=== PATIENT | female | born 1970 | race Caucasian/White ===

== ENCOUNTER → 2018-04-16 17:38 | Outpatient (CLI) | payer BC, SELFPAY ==
--- NOTE | 2018-04-16 17:49 | RAD_ITS ---
STUDY: X-RAY - LUMBAR SPINE REASON FOR EXAM: Female, 47 years old. Back pain TECHNIQUE: 3 view(s) of the lumbar spine were obtained. COMPARISON: None FINDINGS: There de hernandez at L4 and L5. A mild lumbar scoliosis with convexity to the left. 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 The procedure is secured by plates and transpedicular screws through L3, L4 and L5. There is deroofing L4 and L5 Electronically Signed: Tan Vogt, at 7:40 EDT Tel , Service support , RAD/Lumbar Spine 2 or 3 Views
== END ==
PROVIDERS: Family Provider Internal Medicine; PCP Internal Medicine; Visit Provider Clinical Nurse Specialist
DX: Z98.890 Other specified postprocedural states (principal)
CPT/HCPCS: 72100

== ENCOUNTER 2018-05-18 16:01 | Emergency (ER) | payer BC, SELFPAY ==
[2018-05-18 16:02] VITALS: BP 120/72; PULSE 70; RESP 16; TEMP 36.6; O2SAT 99; BMI 28.4
--- NOTE | 2018-05-18 16:24 | ED.DCSUM_ITS ---
- ER Visit Summary Date of Service: 05/18/18 Chief Complaint: Pain History of Present Illness: The patient is a 47 F who presents with essentially whole body pain she complains of pain from the top of her head to the tips of her toes only on the left side. She states that she does have back pain all the way across her lower back. She had a lumbar spinal fusion of L3 through L5 in February. She had been on oxycodone since that time. She was taken off of this a little over a week ago. A couple of days later she began to have increased pain along the entire left side of her body. She saw her neurologist who adjusted her migraine medications. She has an appointment with her spinal surgeon tomorrow. She was also prescribed Percocet. She states she was anxious today about her pain so presented here. No slurred speech speech difficulty paresthesias weakness. No recent illness. No fevers vomiting or diarrhea. No difficulty breathing. No abdominal pain. Physical Examination: Afebrile vitals are normal Moist mucous membranes Heart regular rate and rhythm Lungs are clear Abdomen soft and nontender Alert and oriented with no focal or lateralizing neurological deficits cranial nerves are intact she has normal strength and sensation she has normal cerebellar testing, no ataxia Test Results: Not indicated Emergency Department Course and Treatment: I explained the patient that I am uncertain of the etiology of her pain. However she has normal vital signs and a benign exam and should. She has already seen neurology for the symptoms. She is also scheduled to see her spinal surgeon for follow-up tomorrow. I do not believe any emergent testing is indicated at this time. She was instructed on signs and symptoms to monitor for. She was given intramuscular Toradol for her pain. Patient comfortable with the plan to follow-up as scheduled. She was discharged. Treatment Plan: [] Disposition: Discharge Impression: Pain This note was generated with [employer] dictation software. It may contain incorrect words, spelling, and punctuation that were not noted in review of the chart prior to signing ED Disposition - Plan for ED Patient: Chief Complaint: Headache Referrals: Hope Mcdaniel MD [Primary Care Provider] -
--- NOTE | 2018-05-18 16:24 | ED.DEP ---
ED Disposition - Plan for ED Patient: Chief Complaint: Headache Instructions: ED Acute Pain [facility] Referrals: Hope Mcdaniel MD [Primary Care Provider] -
[2018-05-18] MEDS: Ketorolac 60 MG/2 ML Vial IM (16:34)
[2018-05-18 17:11] VITALS: PULSE 67; RESP 16; O2SAT 98
== END 2018-05-18 17:12 | disposition home or self-care (01) ==
LOC: ED 16:31
PROVIDERS: Emergency Provider Emergency Medicine; Family Provider Internal Medicine; PCP Internal Medicine
DX: M54.5 Low back pain (principal); R52 Pain, unspecified; G43.909 Migraine, unspecified, not intractable, without status migrainosus; F32.9 Major depressive disorder, single episode, unspecified; I48.91 Unspecified atrial fibrillation; Z98.1 Arthrodesis status; Z79.891 Long term (current) use of opiate analgesic; Z79.899 Other long term (current) drug therapy
CPT/HCPCS: 96372; 99283

== ENCOUNTER 2018-07-25 16:32 | Emergency (ER) | payer BC, SELFPAY ==
[2018-07-25 16:33] VITALS: BP 127/82; PULSE 68; RESP 16; TEMP 36.4; O2SAT 98; BMI 26.8
--- NOTE | 2018-07-25 16:57 | ED.DCSUM_ITS ---
- ER Visit Summary Date of Service: 07/25/18 Chief Complaint: Left great toe injury and laceration History of Present Illness: The patient is a 47 F no significant past medical history. Patient was using a grinding wheel at home. We will came off and struck her on her left great toe. Causing a laceration. She also states that it is painful and swollen. No prior history or surgery to her left foot. No other injuries. Does not believe her tetanus is up-to-date. Physical Examination: Middle-aged female. No acute distress. Vital signs are stable afebrile. H EENT exam unremarkable. Lungs clear to auscultation. Heart regular rhythm no murmur. Abdomen soft nontender. She is moving all 4 extremities. They are neurovascularly intact. Her left foot has a normal DP pulse. Ankle is nontender nonswollen. The foot is nontender nonswollen except the left great toe near the interphalangeal joint there is a laceration approximately 2 cm in length. There is a small amount of blood. Mild swelling and tenderness. No gross bony deformity. Distally she has normal cap refill and touch sensation. She can flex and extend her great toe. Neurologic exam normal. Test Results: Three-view x-ray left foot shows no acute abnormality. No fracture. Emergency Department Course and Treatment: Patient's tetanus will be updated. Procedure note: Left great toe laceration repair. 2 cm laceration. Locally anesthetized with lidocaine. Washed with saline. Explored. Closed using # 2 4-0 Ethilon simple interrupted suture. Proper hemostasis wound closure was obtained. Wound care instructions explained to the patient. Treatment Plan: Ice and elevate the left great toe. Wash daily. Apply antibiotic ointment. Suture removal in 10 days. Disposition: Discharge Impression: Acute left great toe laceration of 2 cm ER repair Left great toe contusion Tetanus updated This note was generated with [employer] dictation software. It may contain incorrect words, spelling, and punctuation that were not noted in review of the chart prior to signing ED Disposition - Plan for ED Patient: Disposition: Home or Assisted Living Chief Complaint: Lower Extremity Injury Instructions: ED Laceration Foot Referrals: Hope Mcdaniel MD [Primary Care Provider] - 10 Day for suture removal Additional Instructions: Ice and elevate left great toe. Clean daily and apply antibiotic ointment. Tylenol and Motrin for pain. Suture removal in 10 days. Watch for any signs of infection such as pus, red streaks, redness, fever or massive swelling. Is seen return to the ER.
[2018-07-25] MEDS: Diphth,Pertuss(Acell),Tet Vac 0.5 ML Vial IM (17:01)
--- NOTE | 2018-07-25 17:20 | RAD_ITS ---
STUDY: X-RAY - LEFT FOOT CLINICAL: Female, 47 years old. Left foot laceration of the proximal first toe TECHNIQUE: 3 view(s) of the foot. COMPARISON: None. FINDINGS: Normal talus, calcaneus, and tarsal bones. Normal visualized subtalar, talonavicular, calcaneocuboid, tarsal and tarsometatarsal articulations. Normal metatarsi. Normal metatarsophalangeal joint of the great toe. Normal tibial and fibular sesamoid bones. Normal interphalangeal joint of the great toe. Normal phalanges of the great toe. Normal second through fifth metatarsophalangeal joints. Normal interphalangeal joints and phalanges of the lesser toes. The soft tissue structures are unremarkable. RAD/Foot min 3 Views IMPRESSION: Normal x-ray examination of the foot. Electronically Signed: Neri Melendez DO at 17:41 EDT Tel , Service support ,
--- NOTE | 2018-07-25 17:50 | ED.DEP ---
ED Disposition - Plan for ED Patient: Disposition: Home or Assisted Living Chief Complaint: Lower Extremity Injury Instructions: ED Laceration Foot Referrals: Hope Mcdaniel MD [Primary Care Provider] - 10 Day for suture removal Additional Instructions: Ice and elevate left great toe. Clean daily and apply antibiotic ointment. Tylenol and Motrin for pain. Suture removal in 10 days. Watch for any signs of infection such as pus, red streaks, redness, fever or massive swelling. Is seen return to the ER.
[2018-07-25 18:02] VITALS: BP 124/76; PULSE 77; RESP 16; O2SAT 98
== END 2018-07-25 18:03 | disposition home or self-care (01) ==
PROVIDERS: Emergency Provider Emergency Medicine; Family Provider Internal Medicine; PCP Internal Medicine
DX: S91.112A Laceration without foreign body of left great toe without damage to nail, initial encounter (principal); W20.8XXA Other cause of strike by thrown, projected or falling object, initial encounter; S90.112A Contusion of left great toe without damage to nail, initial encounter
CPT/HCPCS: 12001; 73630; 90471; 90715; 99282

== ENCOUNTER 2019-08-11 18:30 | Outpatient (RCR) | payer BC, SELFPAY ==
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
== END 2019-08-11 19:00 | disposition home or self-care (01) ==
LOC: PT 18:30
PROVIDERS: Family Provider Internal Medicine; PCP Internal Medicine; Referring Provider Nurse Practitioner Family; Visit Provider Nurse Practitioner Family
DX: M51.37 Other intervertebral disc degeneration, lumbosacral region (principal); M54.17 Radiculopathy, lumbosacral region; M47.817 Spondylosis without myelopathy or radiculopathy, lumbosacral region; M96.1 Postlaminectomy syndrome, not elsewhere classified; M48.07 Spinal stenosis, lumbosacral region; M79.10 Myalgia, unspecified site
CPT/HCPCS: 97110; 97113; 97162; 97164; 97530

== ENCOUNTER 2020-01-12 16:51 | Observation (INO) | payer BC, SELFPAY ==
[2020-01-12 16:52] VITALS: BP 135/99; PULSE 66; RESP 15; TEMP 36.9; O2SAT 98; BMI 31.4
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
--- NOTE | 2020-01-12 17:08 | EKG12_ITS ---
Test Reason : SYNCOPE Blood Pressure : / mmHG Vent. Rate : 065 BPM Atrial Rate : 065 BPM P-R Int : 182 ms QRS Dur : 076 ms QT Int : 380 ms P-R-T Axes : 046 022 050 degrees QTc Int : 395 ms Normal sinus rhythm Nonspecific ST abnormality Abnormal ECG Confirmed by GREG AMOS, ALVIN ([id number]), news assignment editor TEODORA LUU ([id number]) on 01/18/2020 11:19:32 AM Referred By: Luis Antonio Matson Confirmed By:DAVIDA GARZA MD
--- NOTE | 2020-01-12 17:15 | RAD_ITS ---
STUDY: X-RAY CHEST REASON FOR EXAM: Female, 49 years old. [place]NCOPE, RECENT TRAVEL [place] TECHNIQUE: Single frontal view of the chest. COMPARISON: 03/05/2017 FINDINGS: The lungs are clear and expanded. There is no demonstrated pleural abnormality. Normal size heart. Normal mediastinum and orion. Normal visualized pulmonary arteries. Normal visualized aortic arch and descending thoracic aorta. Normal visualized thoracic spine. Normal visualized ribs, clavicles, and shoulders. There is no demonstrated abnormality of the visualized soft tissue structures of the upper abdomen. RAD/Chest 1 View (Portable) IMPRESSION: Normal x-ray examination of the chest. Electronically Signed: Tarun Thurman MD at 17:34 EDT Tel , Service support ,
[2020-01-12 17:17] VITALS: BP 130/83; PULSE 66; RESP 18; O2SAT 96
[2020-01-12 17:29] LABS: Absolute Lymphocyte Count 3.82 X10^3/uL (0.83-4.51); Basophil# 0.05 X10^3/uL; Basophil% 0.5 % (0-1); Eosinophil# 0.06 X10^3/uL; Eosinophils% 0.6 % (0-5); Hematocrit 47.9 % (37-47); Hemoglobin 15.6 g/dL (12.0-15.0); Lymphocyte # 3.82 X10^3/ul (4.0); Lymphocyte % 38.7 % (19-41); Mean Corp Hgb Conc 32.6 g/dL (32-36); Mean Corpuscular Hgb 30.2 pg (27.0-32.0); Mean Corpuscular Volume 92.6 fL (81-99); Mean Platelet Vol. 9.7 fl (6.2-12.0); Monocyte# 0.96 X10^3/uL; Monocyte% 9.7 % (0-10); NRBC Flagged by Analyzer 0 % (0-5); Neutrophil # 4.95 X10^3/uL (2.7-7.7); Neutrophil % 50.3 % (47-70); Platelet Count 332 K/mm3 (150-450); RBC Distribution Width CV 14.4 % (11.6-14.6); RBC Distribution Width SD 49.1 fl (35.1-43.9); Red Blood Count 5.17 M/mm3 (4.2-5.4); White Blood Count 9.9 K/mm3 (4.4-11.0)
[2020-01-12 17:48] LABS: Prothrombin Time (Protime)PT. 13.1 SECONDS (11.7-14.9)
[2020-01-12 17:49] LABS: Partial Thromboplast Time 34.2 Seconds (24.1-36.2)
[2020-01-12 17:59] LABS: Anion Gap 7 (5-15); BUN 21 mg/dL (7-18); BUN/Creat Ratio 22.4 RATIO (10-20); Calcium,Total 9.9 mg/dL (8.5-10.1); Chloride 106 mmol/L (98-107); Creatinine, Serum 0.94 mg/dL (0.55-1.02); EST Glomerular Filtration Rate 67 mL/min (>60); Est Glom Filt Rate - Afr Amer 81 mL/min (>60); Estimated Creatinine Clearance 66.28 ml/min; Glucose 91 mg/dL (74-106); Potassium 4.2 mmol/L (3.5-5.1); Sodium Level 138 mmol/L (136-145)
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
--- NOTE | 2020-01-12 19:13 | PCM.HP.STD ---
Problem List (1) Stroke-like symptoms Status: Acute (2) Perimenopause Status: Chronic (3) Depression Status: Chronic (4) Cholelithiasis Status: Inactive History of Present Illness Date of Admission: 01/12/20 Chief Complaint: syncope The patient is a 49 year old F with a significant history of chronic back pain and chronic left lower extremity pain; depression and who traveled to [place] and [place] on December 30 2019 and returned on January 09 2020 presenting with syncopal episode. While, patient was driving she felt head pressure, and general body paresthesia. Also things looked brighter. Patient pulled to the side and while at the side she had a syncopal episode. Thereafter she had blurry vision; and generalized body weakness. Further she reports numbness of her lips and face. At the Emergency department she continued to have some general body tingling. CT head, CTA head and neck did not show any acute abnormality. Past Medical History Past Medical History (Chronic Problems): Chronic Problems Perimenopause (Chronic) Depression (Chronic) Allergies No Known Allergies Allergy (Verified 05/18/18 16:06) Home Medications: Ambulatory Orders Medication Instructions Recorded Citalopram [Celexa] 20 mg PO DAILY 05/18/18 Eletriptan Hydrobromide [Relpax] 20 mg PO DAILY 05/18/18 Meloxicam 15 mg PO DAILY 05/18/18 Methocarbamol 500 mg PO TID 05/18/18 Oxycodone HCl/Acetaminophen 5 - 325 mg PO Q6H PRN PRN 05/18/18 [Percocet 5-325] Topiramate [Topamax] 50 mg PO BID 05/18/18 Hydrocodone/Acetaminophen [[place] 1 ea PO PRN PRN #10 tab 07/25/18 7.5-325 Tablet] Surgical History: cholecystectomy, tonsillectomy, - - Spinal fusion Smoking Status: Never smoker Alcohol: Occasional - *Family History Maternal History Items: - - Patient was adopted and she does not know biological maternal and paternal medical history. Paternal History Items: - - Patient was adopted and she does not know biological maternal and paternal medical history. Review of Systems Constitutional: Reports: Weakness. Denies: Chills, Fever, Weight Change HEENT: Denies: Head Aches, Sinus Congestion, Sinus Drainage Cardiovascular: Reports: Syncope. Denies: Chest Pain, Palpitations Respiratory: Denies: Cough, Shortness of breath at rest, Sputum production Gastrointestinal: Denies: Abdominal Pain, Nausea, Vomiting Genitourinary: Denies: Dysuria Musculoskeletal: Denies: Joint Pain, Joint Tenderness Skin: Denies: Rash, Wounds Neurological: Reports: Numbness, Tingling. Denies: Focal weakness Psychiatric: Denies: Anxiety, Depression, Homicidal Ideations, Suicidal Ideations Hematologic/ Lymphatic: Denies: Easy Bruising, Easy Bleeding VTE Information - Inpt Only VTE Present on Admission: No VTE Mechan Device Prophylaxis: None VTE Pharm Prophylaxis ordered?: Yes Patient Problems: Active and Suspected Problems Stroke-like symptoms (Acute) - Physical Exam Vitals/I&O's: Vital Signs Temp Pulse Resp BP Pulse Ox 98.5 F 66 18 130/83 H 96 01/12/20 16:52 01/12/20 17:17 01/12/20 17:17 01/12/20 17:17 01/12/20 17:17 Oxygen Delivery Method Room Air Weight: 88.2 kg Body Mass Index (BMI) 31.4 General: Alert, Oriented x3, Cooperative HEENT: Atraumatic, PERRLA, EOMI, Normocephalic Neck: Supple, No JVD, Negative Carotid Bruits Lungs: Clear to auscultation, Normal air movement Cardiovascular: Regular rate, No murmurs Abdomen: Bowel Sounds Present, Soft, Non Tender Extremities: No edema, Capillary Refill Less than 3 Seconds Skin: No rashes, No breakdown Musculoskeletal: No Tenderness to Palpation of Joints or Extremities Neurological: Cranial nerves II-XII grossly intact, Deep Tendon Reflexes 2+/4 and Symmetrical, - - Sensation in right upper and right lower extremities appear more pronounced than that of the left upper and left lower extremity. Strength in right upper and right lower extremity 5 out of 5. Strength in left upper and left lower extremity was 3 out of 5. No dysmetria. However [id number] testing and heel to taylor test was a slow in left compared to right Psych/Mental Status: Normal Affect, Appropriate Laboratory Results 01/12/20 16:40: WBC 9.9, RBC 5.17, Hgb 15.6 H, Hct 47.9 H, MCV 92.6, MCH 30.2, MCHC 32.6, RDW Std Deviation 49.1 H, RDW Coeff of Aaron 14.4, Plt Count 332, MPV 9.7, Immature Gran % (Auto) 0.200, Neut % (Auto) 50.3, Lymph % (Auto) 38.7, Person % (Auto) 9.7, Eos % (Auto) 0.6, Baso % (Auto) 0.5, Absolute Neuts (auto) 5.0, Absolute Lymphs (auto) 3.82, Nucleated RBC % 0 01/12/20 16:40: PT 13.1, INR 1.0, APTT 34.2 01/12/20 16:40: Sodium 138, Potassium 4.2, Chloride 106, Carbon Dioxide 25.0, Anion Gap 7, BUN 21 H, Creatinine 0.94, Estim Creat Clear Calc 66.28, Est GFR (MDRD) Af Amer 81, Est GFR (MDRD) Non-Af 67, BUN/Creatinine Ratio 22.4 H, Glucose 91, Calcium 9.9, Troponin I < 0.015 Assessment/Plan All Active Problems Stroke-like symptoms (Acute) Paroxysmal atrial fibrillation (Resolved) The patient is a 49 year old F with a significant history of chronic back pain and chronic left lower extremity pain; depression and who traveled to [facility] on December 30 2019 and returned on January 09 2020 presenting with syncopal episode and found to have left upper extremity and left lower extremity weakness consistent with strokelike symptoms. Strokelike symptoms NINDS NIH Scale CT of the head was unremarkable. CTA head and neck unremarkable. -Check Hba1c, Lipid level Physical therapy; and occupational therapy to work with patient. N.p.o. until bedside swallow eval. Daily aspirin. High intensity statin Permissive hypertension. Control blood pressure with labetalol for systolic blood pressure of more than 220 or diastolic blood pressure of more than 120. -Permissive HTN for 24 hrs. MRI of brain; and neck. Check vitamin B-12 for paresthesias. Echocardiogram ordered. Syncope Get orthostatic vitals. Echo as above. EKG did not show any ST or T wave abnormality. Chronic pain Continue home pain regimen Depression Continue home antidepressants. DVT Prophylaxis Subcutaneous Lovenox Covid 19 Quarantine: Patient return from [facility] and [facility] 3 days ago; and is expected to self quarantine. Patient has no fever or respiratory symptoms. Placed on droplet and contact precautions. OBSV E&M: 39233 Initial observation care L3
[2020-01-12 20:10] VITALS: BMI 29.2
[2020-01-12 20:20] VITALS: BP 128/75; PULSE 62; RESP 16; TEMP 36.7; O2SAT 98
[2020-01-12 20:45] VITALS: O2SAT 97
[2020-01-12 20:57] VITALS: PULSE 67
[2020-01-12] MEDS: Topiramate 25 MG Tablet PO (22:24)
[2020-01-12] MEDS: Atorvastatin Calcium 80 MG Tablet PO (22:24)
[2020-01-12] MEDS: oxyCODONE 5 MG Tablet PO (22:25)
[2020-01-13] VITALS (12 sets, daily range): BP systolic 102–134; BP diastolic 54–80; PULSE 56–70; RESP 16–20; TEMP 36.3–36.6; O2SAT 95–99
[2020-01-13] MEDS: oxyCODONE 5 MG Tablet PO ×3 (04:45→17:55)
[2020-01-13] MEDS: Rizatriptan Benzoate 10 MG Tablet PO ×2 (05:04→18:57)
[2020-01-13 06:36] LABS: Cholesterol 304 mg/dL (200); High Density Lipoprotein 61 mg/dL; Triglycerides 115 mg/dL; Very Low Density Lipoprotein 23 mg/dL (5-40)
[2020-01-13 07:40] LABS: Hemoglobin A1c 5.7 % (4.2-6.3)
[2020-01-13 08:19] LABS: Vitamin B12 746 pg/mL (211-911)
--- NOTE | 2020-01-13 09:00 | MRI_ITS ---
STUDY: MRI BRAIN WITHOUT CONTRAST REASON FOR EXAM: Female, 49 years old. cva, left sided weakness TECHNIQUE: Standardized multiplanar fat and water weighted pulse sequences were obtained. COMPARISON: 01/12/2020 FINDINGS: Normal size of the ventricles and extra-axial spaces for the patient''s age. Normal white matter tracts of the supratentorial brain. Normal bilateral basal ganglia. Normal thalami. There is no extra-axial fluid accumulation. Normal flow voids within the major intracranial circulation suggesting patency by spin echo criteria. Normal sella turcica, pituitary gland, infundibular stalk, optic chiasm and hypothalamus. Normal tectal plate and pineal gland. Normal midbrain, bharti and medulla. Normal cerebellum. Normal basal cisterns. Normal bilateral temporal bones. MRI/Brain without Contrast IMPRESSION: Normal unenhanced MRI of the brain. Electronically Signed: Pao Mejia MD at 12:56 EDT Tel , Service support ,
[2020-01-13] MEDS: Enoxaparin 40 MG/0.4 ML Syringe SC (09:50)
[2020-01-13] MEDS: Acetaminophen 325 MG Tablet 650 MG PO ×2 (09:51→17:55)
[2020-01-13] MEDS: Aspirin 81 MG TAB.CHEW PO (09:51)
--- NOTE | 2020-01-13 13:58 | PN_ITS ---
Patient Problems: Active and Suspected Problems Stroke-like symptoms (Acute) Subjective: States that she is feeling a little bit better than when she came in however she still having significant left-sided weakness Vitals/I&O's: Vital Signs Temp Pulse Resp BP Pulse Ox 97.6 F L 57 L 20 H 134/75 H 99 01/13/20 08:20 01/13/20 08:20 01/13/20 08:20 01/13/20 08:20 01/13/20 08:20 Oxygen Delivery Method Room Air Weight: 181 lb 3.52 oz Body Mass Index (BMI) 29.2 Orthostatic Vital Signs Start: 01/13/20 01:57 Freq: q24h Status: Active Protocol: Activity Type Activity Date Activity User E-Sign Co-Sign Detail Recorded Client Recorded Date Recorded By Document 01/13/20 04:20 MAB [id number] 01/13/20 04:39 MAB 01/13/20 04:20 Orthostatic Vitals Standing -Blood Pressure (90/60-120/80) 105/77 -Extremity Use Left Arm -Pulse Rate (60-100) 70 Sitting -Blood Pressure (90/60-120/80) 109/73 -Extremity Use Left Arm -Pulse Rate (60-100) 60 Lying -Blood Pressure (90/60-120/80) 120/76 -Extremity Use Left Arm -Pulse Rate (60-100) 56 L Intake and Output for Last 24 Hours 01/11/20 01/12/20 01/13/20 23:59 23:59 23:59 Intake Total 480 / 480 120 / 120 Balance 480 / 480 120 / 120 General: Alert, Oriented x3, Cooperative, No apparent distress HEENT: Atraumatic, PERRLA, EOMI, Normocephalic Oral: Moist Mucosa Neck: Supple, No JVD Lungs: Clear to auscultation, Normal air movement, No rhonchi, No wheeze, No rales, Diminished Cardiovascular: Regular rate, Regular Rhythm, Normal S1, Normal S2, No murmurs Abdomen: Soft, Non Tender, Non-Distended, No Hepato-splenomegaly Extremities: No edema, Capillary Refill Less than 3 Seconds Skin: No rashes, No breakdown Neurological: Deep Tendon Reflexes 2+/4 and Symmetrical, Facial Droop - On the left, - - Strength is 4 out of 5 on the left and 5 out of 5 on the right. Sensation is decreased on the left side of her body compared to the right Psych/Mental Status: Normal Affect, Appropriate Laboratory Results 01/12/20 16:40: WBC 9.9, RBC 5.17, Hgb 15.6 H, Hct 47.9 H, MCV 92.6, MCH 30.2, MCHC 32.6, RDW Std Deviation 49.1 H, RDW Coeff of Aaron 14.4, Plt Count 332, MPV 9.7, Immature Gran % (Auto) 0.200, Neut % (Auto) 50.3, Lymph % (Auto) 38.7, [place] % (Auto) 9.7, Eos % (Auto) 0.6, Baso % (Auto) 0.5, Absolute Neuts (auto) 5.0, Absolute Lymphs (auto) 3.82, Nucleated RBC % 0 01/12/20 16:40: PT 13.1, INR 1.0, APTT 34.2 01/12/20 16:40: Sodium 138, Potassium 4.2, Chloride 106, Carbon Dioxide 25.0, Anion Gap 7, BUN 21 H, Creatinine 0.94, Estim Creat Clear Calc 66.28, Est GFR (MDRD) Af Amer 81, Est GFR (MDRD) Non-Af 67, BUN/Creatinine Ratio 22.4 H, Glucose 91, Calcium 9.9, Troponin I < 0.015 01/13/20 05:45: Triglycerides 115, Cholesterol 304 H, LDL Cholesterol 220 H, VLDL Cholesterol 23, HDL Cholesterol 61 01/13/20 05:45: Hemoglobin A1c 5.7 01/13/20 05:45: Vitamin B12 746 Current Medications Acetaminophen (Tylenol) 650 mg PO Q6H PRN PRN PRN Reason: Pain Score 1-10/10 Last Admin: 01/13/20 09:51 Dose: 650 mg Documented by: Aspirin (Aspirin, Baby) 81 mg PO DAILY@0800 [facility] Last Admin: 01/13/20 09:51 Dose: 81 mg Documented by: Atorvastatin Calcium (Lipitor) 80 mg PO QHS [facility] Last Admin: 01/12/20 22:24 Dose: 80 mg Documented by: Enoxaparin Sodium (Lovenox) 40 mg SC DAILY [facility] Last Admin: 03/18/20 09:50 Dose: 40 mg Documented by: Glucagon () 1 mg IM .X1 PRN PRN Reason: Hypoglycemia Dextrose (Dextrose 10%-Water) 250 mls @ 999 mls/hr IV .Q16M PRN; Protocol PRN Reason: HYPOGLYCEMIA Labetalol HCl (Trandate) 10 mg IV Q10M PRN PRN PRN Reason: to maintain BP goals Nutritional Formula (Lactose Free) (Ensure Enlive) 120 ml PO 4X/DAY [facility] Last Admin: 01/13/20 09:51 Dose: 120 ml Documented by: Ondansetron HCl (Zofran) 4 mg IV Q8H PRN PRN PRN Reason: NAUSEA/VOMITING Oxycodone HCl (Oxyir) 5 mg PO Q6H PRN PRN PRN Reason: Pain 4-08/06 Last Admin: 01/13/20 11:17 Dose: 5 mg Documented by: Rizatriptan Benzoate (Maxalt) 10 mg PO DAILY PRN PRN PRN Reason: HEADACHE Last Admin: 01/13/20 05:04 Dose: 10 mg Documented by: Sodium Chloride () 10 - 40 ml IV UD PRN PRN Reason: SALINE FLUSH Topiramate (Topamax) 25 mg PO QHS [facility] Last Admin: 01/12/20 22:24 Dose: 25 mg Documented by: Medical Necessity - Tobacco Use Smoking Status: Never smoker Tobacco Use: Non-smoker Assessment/Plan All Active Problems Stroke-like symptoms (Acute) Paroxysmal atrial fibrillation (Resolved) 1. Acute CVA/syncope -She does have some left-sided deficits consistent with a right-sided CVA -CTA of the head and neck is unremarkable, echo is pending -MRI did not show a stroke, however because of her neuro deficits we will consult tele-neurology -We will continue with aspirin as well as Lipitor, there is been no signs of A. fib on the monitor -LDL cholesterol at 220 with total cholesterol 304 -She did describe her initial episode as of a head pressure with electrical discharges throughout her body and then passing out -Static vital signs are unremarkable 2. Chronic pain/migraine/depression -She had had a migraine the night before this happened but she did not have a headache during this episode -Continue with her home meds DVT: Lovenox OBSV E&M: 60718 Subsequent observation care L2
--- NOTE | 2020-01-13 14:44 | NURSING ---
NIH late d/t pt being off unit @ MRI
[2020-01-13] MEDS: Atorvastatin Calcium 80 MG Tablet PO (21:02)
[2020-01-13] MEDS: Topiramate 25 MG Tablet PO (21:02)
[2020-01-14] VITALS (10 sets, daily range): BP systolic 100–127; BP diastolic 59–74; PULSE 54–78; RESP 12–16; TEMP 36.2–37; O2SAT 93–98
[2020-01-14] MEDS: Rizatriptan Benzoate 10 MG Tablet PO ×2 (00:19→13:30)
[2020-01-14] MEDS: oxyCODONE 5 MG Tablet PO ×4 (00:19→18:56)
[2020-01-14] MEDS: Acetaminophen 325 MG Tablet 650 MG PO ×4 (00:19→18:56)
[2020-01-14] MEDS: Enoxaparin 40 MG/0.4 ML Syringe SC (08:24)
[2020-01-14] MEDS: Aspirin 81 MG TAB.CHEW PO (08:24)
[2020-01-14] MEDS: Ketorolac 30 MG/ML Syringe IV ×2 (10:19→16:50)
[2020-01-14] MEDS: 0.9% Saline Lock 10 ML Syringe IV ×2 (10:20→16:51)
[2020-01-14] MEDS: 0.9% Normal Saline 1,000 ML 125 ML IV ×2 (15:49→23:58)
--- NOTE | 2020-01-14 16:18 | PCM.PN.HOSP ---
Patient Problems: Active and Suspected Problems Stroke-like symptoms (Acute) Subjective: Feels about the same as yesterday, she still having a migraine. The Maxalt helps a little bit and so did the Toradol. Still with weakness in her left side as well as numbness in her face and her left side. Vitals/I&O's: Vital Signs Temp Pulse Resp BP Pulse Ox 98.2 F 59 L 16 117/74 96 01/14/20 13:32 01/14/20 13:32 01/14/20 13:32 01/14/20 13:32 01/14/20 13:32 Oxygen Delivery Method Room Air Weight: 181 lb 3.52 oz Body Mass Index (BMI) 29.2 Orthostatic Vital Signs Start: 01/13/20 01:57 Freq: q24h Status: Active Protocol: Activity Type Activity Date Activity User E-Sign Co-Sign Detail Recorded Client Recorded Date Recorded By Document 01/13/20 04:20 MAB [id number] 01/13/20 04:39 MAB 01/13/20 04:20 Orthostatic Vitals Standing -Blood Pressure (90/60-120/80) 105/77 -Extremity Use Left Arm -Pulse Rate (60-100) 70 Sitting -Blood Pressure (90/60-120/80) 109/73 -Extremity Use Left Arm -Pulse Rate (60-100) 60 Lying -Blood Pressure (90/60-120/80) 120/76 -Extremity Use Left Arm -Pulse Rate (60-100) 56 L Intake and Output for Last 24 Hours 01/12/20 01/13/20 01/14/20 23:59 23:59 23:59 Intake Total 480 / 480 840 / 840 340 / 340 Balance 480 / 480 840 / 840 340 / 340 General: Alert, Oriented x3, Cooperative, No apparent distress HEENT: Atraumatic, PERRLA, EOMI, Normocephalic Oral: Moist Mucosa Neck: Supple, No JVD Lungs: Clear to auscultation, Normal air movement, No rhonchi, No wheeze, No rales, Diminished Cardiovascular: Regular rate, Regular Rhythm, Normal S1, Normal S2, No murmurs Abdomen: Soft, Non Tender, Non-Distended, No Hepato-splenomegaly Extremities: No edema, Capillary Refill Less than 3 Seconds Skin: No rashes, No breakdown Neurological: Deep Tendon Reflexes 2+/4 and Symmetrical, Facial Droop - On the left, - - Strength is 4 out of 5 on the left and 5 out of 5 on the right. Sensation is decreased on the left side of her body compared to the right Psych/Mental Status: Normal Affect, Appropriate Current Medications Acetaminophen (Tylenol) 650 mg PO Q6H PRN PRN PRN Reason: Pain Score 1-10/10 Last Admin: 01/14/20 12:17 Dose: 650 mg Documented by: Aspirin (Aspirin, Baby) 81 mg PO DAILY@0800 [facility] Last Admin: 01/14/20 08:24 Dose: 81 mg Documented by: Atorvastatin Calcium (Lipitor) 80 mg PO QHS [facility] Last Admin: 01/13/20 21:02 Dose: 80 mg Documented by: Enoxaparin Sodium (Lovenox) 40 mg SC DAILY [facility] Last Admin: 01/14/20 08:24 Dose: 40 mg Documented by: Glucagon () 1 mg IM .X1 PRN PRN Reason: Hypoglycemia Dextrose (Dextrose 10%-Water) 250 mls @ 999 mls/hr IV .Q16M PRN; Protocol PRN Reason: HYPOGLYCEMIA Sodium Chloride () 1,000 mls @ 125 mls/hr IV .Q8H [facility] Stop: 01/15/20 07:04 Last Admin: 01/14/20 15:49 Dose: 125 mls/hr Documented by: Ketorolac Tromethamine (Toradol (Bkc)) 30 mg IV Q6H PRN PRN PRN Reason: headache/migraine Stop: 01/19/20 16:13 Labetalol HCl (Trandate) 10 mg IV Q10M PRN PRN PRN Reason: to maintain BP goals Ondansetron HCl (Zofran) 4 mg IV Q8H PRN PRN PRN Reason: NAUSEA/VOMITING Oxycodone HCl (Oxyir) 5 mg PO Q6H PRN PRN PRN Reason: Pain 4-10/10 Last Admin: 01/14/20 12:17 Dose: 5 mg Documented by: Rizatriptan Benzoate (Maxalt) 10 mg PO DAILY PRN PRN PRN Reason: HEADACHE Last Admin: 01/14/20 00:19 Dose: 10 mg Documented by: Sodium Chloride () 10 - 40 ml IV UD PRN PRN Reason: SALINE FLUSH Last Admin: 01/14/20 10:20 Dose: 20 ml Documented by: Topiramate (Topamax) 25 mg PO QHS [facility] Last Admin: 01/13/20 21:02 Dose: 25 mg Documented by: STROKE Vital Signs/Narrative: Vital Signs Temp Pulse Resp BP Pulse Ox 01/14/20 13:32 98.2 F 59 L 16 117/74 96 Medical Necessity - Tobacco Use Smoking Status: Never smoker Tobacco Use: Non-smoker Assessment/Plan All Active Problems Stroke-like symptoms (Acute) Paroxysmal atrial fibrillation (Resolved) 1. Acute CVA/syncope -She does have some left-sided deficits consistent with a right-sided CVA -CTA of the head and neck is unremarkable, -Echo was denied for her because of the exposure she had to Gage positive patients and the fact that the echo did not show a stroke. I discussed with her that her risk is low for having something on her echo to explain a possible stroke -MRI did not show a stroke, however because of her neuro deficits tele-neurology was consulted and felt that there could be a seizure/complex migraine, and the EEG was performed which was read as negative for seizure. -We will continue with aspirin as well as Lipitor, there is been no signs of A. fib on the monitor -LDL cholesterol at 220 with total cholesterol 304 -She did describe her initial episode as of a head pressure with electrical discharges throughout her body and then passing out -Orthostatic vital signs are unremarkable 2. Chronic pain/migraine/depression -She had had a migraine the night before this happened but she did not have a headache during this episode -Continue with her home meds -Continues to have ongoing migraine pain therefore we will continue with Toradol as well -She states that she has not been drinking a lot she had been having dark urine therefore we will also start her on some IV fluids DVT: Lovenox OBSV E&M: [id number] Subsequent observation care L2
[2020-01-14] MEDS: Topiramate 25 MG Tablet PO (22:49)
[2020-01-14] MEDS: Atorvastatin Calcium 80 MG Tablet PO (22:49)
[2020-01-15 03:02] VITALS: PULSE 62
[2020-01-15 04:57] VITALS: BP 107/52; PULSE 53; RESP 12; TEMP 36.3; O2SAT 96
[2020-01-15] MEDS: Acetaminophen 325 MG Tablet 650 MG PO (06:10)
[2020-01-15] MEDS: oxyCODONE 5 MG Tablet PO (06:10)
[2020-01-15 07:00] VITALS: PULSE 59
[2020-01-15 07:16] LABS: Anion Gap 4 (5-15); BUN 23 mg/dL (7-18); BUN/Creat Ratio 19.3 RATIO (10-20); Calcium,Total 8.4 mg/dL (8.5-10.1); Chloride 113 mmol/L (98-107); Creatinine, Serum 1.19 mg/dL (0.55-1.02); EST Glomerular Filtration Rate 51 mL/min (>60); Est Glom Filt Rate - Afr Amer 61 mL/min (>60); Estimated Creatinine Clearance 52.36 ml/min; Glucose 81 mg/dL (74-106); Sodium Level 143 mmol/L (136-145)
[2020-01-15] MEDS: Enoxaparin 40 MG/0.4 ML Syringe SC (09:10)
[2020-01-15] MEDS: Aspirin 81 MG TAB.CHEW PO (09:11)
[2020-01-15 09:40] VITALS: BP 137/76; PULSE 68; RESP 18; TEMP 36.6; O2SAT 97
[2020-01-15] MEDS: Ketorolac 30 MG/ML Syringe IV (09:51)
[2020-01-15] MEDS: Rizatriptan Benzoate 10 MG Tablet PO (09:51)
[2020-01-15] MEDS: 0.9% Saline Lock 10 ML Syringe IV (09:52)
--- NOTE | 2020-01-15 10:26 | ECHOD_ITS ---
Reason For Study: TIA/CVA Procedure This was a 2D Doppler, Color Flow transthoracic echocardiogram. Exam performed portable in patient room. Left Ventricle Normal size and thickness. The estimated ejection fraction is 65 %. Normal diastology for age. No regional wall motion abnormalities noted. Right Ventricle Normal size and thickness. Normal systolic function. Atria Normal left atrium. Normal right atrium. Normal atrial septum. Bubble contrast study negative for right to left interatrial shunt. Mitral Valve The mitral valve is structurally normal. No prolapse or stenosis seen. Trivial mitral valve insufficiency. Tricuspid Valve Normal tricuspid valve. Trivial tricuspid valve insufficiency. Right ventricular systolic pressure estimated to be 32 mmHg. Aortic Valve Trisinus/trileaflet aortic valve. Normal aortic valve. Pulmonic Valve Normal pulmonic valve. Great Vessels Normal aortic root. Normal arch. Normal inferior vena cava. Inferior vena cava collapse with sniff. Pericardium/Pleural No pericardial effusion. Medication Performed a rapid injection of agitated mix of 9 cc saline and 1cc air to assess for atrial septal defect. MMode/2D Measurements & Calculations LVIDd: 4.4 cm IVSd: 1.0 cm Ao root diam: 3.5 cm LVIDs: 2.3 cm LVPWd: 0.95 cm RVDd: 2.7 cm FS: 48.2 % LVAd ap4: 29.1 cm2 SV(MOD-sp4): 57.7 ml SV(sp4-el): 59.3 ml EDV(MOD-sp4): 86.4 ml EDV(sp4-el): 88.7 ml LVAs ap4: 15.2 cm2 ESV(MOD-sp4): 28.6 ml ESV(sp4-el): 29.3 ml EF(MOD-sp4): 66.9 % EF(sp4-el): 66.9 % Doppler Measurements & Calculations MV E max sofi: 87.6 cm/sec Ao V2 max: 157.6 cm/sec LV V1 max: 128.9 cm/sec MV A max sofi: 74.1 cm/sec Ao max P.9 mmHg LV V1 max P.6 mmHg MV E/A: 1.2 PA V2 max: 111.5 cm/sec TR max sofi: 249.3 cm/sec TR max P.9 mmHg Interpretation Summary The estimated ejection fraction is 65 %. Normal diastology for age. Trivial mitral valve insufficiency. Trivial tricuspid valve insufficiency. Right ventricular systolic pressure estimated to be 32 mmHg. Bubble contrast study negative for right to left interatrial shunt. Compared to echo report dated 12/15/2012, no appreciable changes noted. Ordering Physician: Krys Ashley Referring Physician: Luis Antonio Matson Performed By: Lucie Birmingham RDCS
[2020-01-15 11:35] VITALS: PULSE 61
--- NOTE | 2020-01-15 11:47 | DCINST_ITS ---
- Discharge Diagnoses Current Active Problems: Current Active and Chronic Problems Stroke-like symptoms (Acute) You will use the following diet at home:: Cardiac Your food should be the consistency of: Regular Your liquids should be the consistency of: Regular/Thin Discharge Activity: Return to Normal Activity Weight Bearing Status: Weight bearing as tolerated Call your doctor if you observe: Numbness or Tingling, Dizziness, Fainting spells Instructions: What Are Migraine and Tension Headaches?, Self-Care for Headaches, Migraine Headache: Stages and Treatment Additional Instructions: TO strictly self quarantine at home for more days (till 01/23/2020), to complete 14 days of self quarantine for COVID 19 exposure. PCP to refer to neurologist as appropriate Allergies/Adverse Reactions: Allergies No Known Allergies Allergy (Verified 05/18/18 16:06) Medications to take at Discharge Eletriptan Hydrobromide [Relpax] 20 mg PO DAILY PRN PRN 05/18/18 Oxycodone HCl/Acetaminophen [Percocet 5-325] 5 - 325 mg PO Q6H PRN PRN 05/18/18 Atorvastatin Calcium 40 mg PO QHS #30 tablet 01/15/20 Topiramate [Topamax] 50 mg PO QHS #30 tablet 01/15/20 The following prescriptions were given: Atorvastatin Calcium 40 mg PO QHS #30 tablet Topiramate [Topamax] 50 mg PO QHS #30 tablet Primary Care Physician: Hope Mcdaniel MD [Primary Care Provider] - Please follow up with your Primary Care Physician in: one week Test Results: Test results from this visit will be discussed in further detail at your follow- up appointment, if applicable. Proposed Discharge Date: 01/15/20
--- NOTE | 2020-01-15 11:57 | PHA.DC.MR ---
Pharmacy Service has performed discharge medication reconciliation for this patient. The patient's discharge medication list was reviewed for discrepancies and discrepancies were resolved. Home Medications Eletriptan Hydrobromide [Relpax] 20 mg PO DAILY PRN PRN 05/18/18 Oxycodone HCl/Acetaminophen [Percocet 5-325] 5 - 325 mg PO Q6H PRN PRN 05/18/18 Atorvastatin Calcium 40 mg PO QHS #30 tab 01/15/20 Topiramate [Topamax] 50 mg PO QHS #30 tab 01/15/20
--- NOTE | 2020-01-15 12:15 | CASEMGMT ---
This JASON CLARKE tried to reach pt via room phone to inquire about order for OP therapy for after her covid 19 quarantine time is completed but pt did not answer phone at this time. Patrice GOMEZ into room and states that pt would like a script for OP PT/OT at this time. Dr. Ashley aware and script to be provided to pt at discharge. Pt cannot start OP therapy until quarantine days are complete and Patrice GOMEZ to reinforce this at discharge. Barb GOMEZ CM
[2020-01-15 14:00] VITALS: BP 137/76; PULSE 68; RESP 18; TEMP 36.6; O2SAT 97
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
== END 2020-01-15 14:43 | disposition home or self-care (01) ==
LOC: ED 17:13 → PCU 20:02
PROVIDERS: Family Medicine; Admitting Provider Hospitalist; Emergency Provider Emergency Medicine; PCP Internal Medicine; Referring Provider Hospitalist; Visit Provider Student in an Organized Health Care Education/Training Program
DX: G43.109 Migraine with aura, not intractable, without status migrainosus (principal); F32.9 Major depressive disorder, single episode, unspecified; R29.700 NIHSS score 0; R53.1 Weakness; G89.29 Other chronic pain; Z79.899 Other long term (current) drug therapy; H53.8 Other visual disturbances; R29.810 Facial weakness; I08.1 Rheumatic disorders of both mitral and tricuspid valves; R94.31 Abnormal electrocardiogram [ECG] [EKG]
CPT/HCPCS: 36415; 70496; 70498; 70551; 71045; 80048; 80061; 82607; 83036; 84484; 85025; 85610; 85730; 93005; 93306; 94762; 95819; 96361; 96372; 96374; 96376; 97110; 97162; 97166; 97535; 99218; 99285; J7030; Q9967; A4216; G0378

== ENCOUNTER 2021-01-23 16:06 | Outpatient (RCR) | payer BC, SELFPAY ==
[2020-01-12 20:10] VITALS: BMI 29.2
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
--- NOTE | 2021-02-02 16:58 | HP.OTFCE.D ---
FCE D/C Summary - Discharge SINA NINO was seen for a one time visit for an FCE on 01/23/21 and is discharged.
== END 2021-01-23 19:00 | disposition home or self-care (01) ==
LOC: OT 16:06
PROVIDERS: PCP Internal Medicine; Referring Provider Nurse Practitioner Family; Visit Provider Nurse Practitioner Family
DX: M51.37 Other intervertebral disc degeneration, lumbosacral region (principal); M54.17 Radiculopathy, lumbosacral region; M47.817 Spondylosis without myelopathy or radiculopathy, lumbosacral region; M96.1 Postlaminectomy syndrome, not elsewhere classified; M48.07 Spinal stenosis, lumbosacral region; M79.10 Myalgia, unspecified site
CPT/HCPCS: 97750

== ENCOUNTER 2021-10-29 10:50 | Emergency (ER) | payer BC, SELFPAY ==
[2021-10-29 10:51] VITALS: BP 141/87; PULSE 74; RESP 16; TEMP 36; O2SAT 100; BMI 31.4
[2021-10-29] MEDS: oxyCODONE 5 MG Tablet PO (11:51)
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
--- NOTE | 2021-10-29 12:05 | RAD_ITS ---
STUDY: X-RAY - RIGHT WRIST REASON FOR EXAM: Female, 51 years old. Pain TECHNIQUE: 3 view(s) of the wrist were obtained. COMPARISON: None. FINDINGS: Normal visualized distal radius and ulna. Normal radiocarpal articulation. Normal distal radioulnar articulation. Normal carpal bones. Normal carpal articulations. Normal carpometacarpal articulation of the thumb. Normal second through fifth carpometacarpal articulations. Normal visualized metacarpal bones. The soft tissue structures are unremarkable. RAD/Wrist min 3 Views IMPRESSION: Normal x-ray examination of the wrist. Electronically Signed: Philip Willis, at 12:21 EST Tel , Service support ,
--- NOTE | 2021-10-29 12:05 | RAD_ITS ---
STUDY: X-RAY - RIGHT HAND REASON FOR EXAM: Female, 51 years old. Pain TECHNIQUE: 3 view(s) of the hand. COMPARISON: None. FINDINGS: Bones are intact without evidence of fracture. The joint spaces are within normal limits. No evidence of dislocation. The soft tissues are unremarkable. RAD/Hand Min 3 Views IMPRESSION: No evidence of acute osseous injury. Electronically Signed: Philip Willis, at 12:26 EST Tel , Service support ,
== END 2021-10-29 12:48 | disposition home or self-care (01) ==
LOC: ED 12:48
PROVIDERS: Emergency Provider Student in an Organized Health Care Education/Training Program; PCP Internal Medicine; Visit Provider Student in an Organized Health Care Education/Training Program
DX: S60.211A Contusion of right wrist, initial encounter (principal); W55.22XA Struck by cow, initial encounter; Y93.K2 Activity, milking an animal; Y99.9 Unspecified external cause status; Y92.9 Unspecified place or not applicable; M54.9 Dorsalgia, unspecified; G89.29 Other chronic pain; Z79.891 Long term (current) use of opiate analgesic; Z79.899 Other long term (current) drug therapy
CPT/HCPCS: 73110; 73130; 99283

== ENCOUNTER 2021-12-17 22:12 | Emergency (ER) | payer BC, SELFPAY ==
[2021-12-17 22:12] VITALS: BP 131/85; PULSE 60; RESP 18; TEMP 36.8; O2SAT 95; BMI 30.7
--- NOTE | 2021-12-17 22:29 | EDS_ITS ---
HPI <BLAKE HAGER - Last Filed: 12/17/21 23:45> History of Present Illness Chief Complaint: Upper Extremity Injury Detail of Chief Complaint: Kicked in the hand by a cow Informant: patient Onset/Context/Timing Onset: Today Current Severity: Severe Narrative Narrative: Patient presents secondary to being kicked in hand by cow while feeding around 1600. Hoof struck hand on palmar surface, throwing hand backwards into pipe. At that time, patient took prescribed Percocet at 1600. Patient c/o constant, severe pain with numbness and tingling in fingers. Pain improved if holding upright. PFSH <BLAKE HAGER - Last Filed: 12/17/21 23:45> PFSH Medical History (Updated 12/17/21 @ 23:[address] Kennedi Nunez MD) Chronic back pain Chronic pain after traumatic injury Home Medications eletriptan [Relpax] 20 mg PO DAILY PRN PRN 05/18/18 [History Last Taken 01/10/20] oxycodone-acetaminophen 5 - 325 mg PO Q6H PRN PRN 05/18/18 [History Last Taken 01/12/20] atorvastatin 40 mg PO QHS #30 tab 01/15/20 [Rx Last Taken Unknown] topiramate 50 mg PO QHS #30 tab 01/15/20 [Rx Last Taken Unknown] oxycodone-acetaminophen [Percocet] 1 tab PO Q6H PRN 4 Days #14 tab 12/17/21 [Rx Last Taken Unknown] Allergy/AdvReac Type Severity Reaction Status Date / Time No Known Allergies Allergy Verified 12/17/21 22:14 Surgical History (Updated 12/17/21 @ 22:58 by BLAKE HAGER) History of back surgery Social History (Updated 12/17/21 @ 22:59 by BLAKE HAGER) Smoking Status: Never smoker alcohol intake: current alcohol intake frequency: a few times a week Alcohol type: wine substance use type: does not use ROS <BLAKE HAGER - Last Filed: 12/17/21 23:45> ROS ED Constitutional Constitutional ED: Denies chills or fever(s) Eyes Eyes: Denies change in vision ENT ENT ED: Denies sore throat Cardiovascular Cardiovascular: Denies chest pain Respiratory/Chest Respiratory/Chest: Denies cough or dyspnea Gastrointestinal Gastrointestinal: Denies nausea or vomiting Genitourinary Genitourinary ED: Denies dysuria Musculoskeletal Musculoskeletal: Reports as per HPI; Denies back pain or neck pain Integumentary Denies rash Neurologic Neurologic: Denies headache(s) Endocrine Endocrinology: Denies polydipsia or polyuria Hematologic/Lymphatic Hematologic/Lymphatic: Denies easy bleeding or easy bruising EXAM <BLAKEJADE DELEONROHITH - Last Filed: 12/17/21 23:45> Physical Exam Const Vital Signs: 12/17/21 22:12 Temperature 98.2 F Temperature Source Temporal Pulse Rate 60 Respiratory Rate 18 Blood Pressure 131/85 H Blood Pressure Mean 100 Pulse Ox 95 Oxygen Delivery Method Room Air Positive well nourished and well developed General Appearance ED: well developed HEENT normocephalic and atraumatic Eyes PERRL and EOMs intact bilaterally Neck General: Negative for tenderness Resp normal respiratory effort and clear to auscultation bilaterally Cardio regular rate and regular rhythm GI GI Narrative: Patient c/o abd tenderness for which she is seeing her primary doctor. Palpation: soft and tender Extremity normal capillary refill Extremity Narrative: Lt hand and fingers edematous with ecchymosis to palmar and dorsal area. Tender to palpation. Full ROM but painful. Neuro oriented x3 Sensorium / Orientation: alert Psych mental status grossly normal Skin Trauma: no lacerations or abrasions [facility] <BLAKE ALLEY - Last Filed: 12/17/21 23:45> [facility] Narrative Medical decision making narrative: Oxycodone ordered for pain. Left hand xray obtained. Treatment and Re-Evaluation Comments:: Per radiologist reading, nondisplaced comminuted fracture midshaft of the third metacarpal. Left hand splinted. Patient has sensation intact to light touch with capillary refill <3 seconds. Patient will be sent home with prescription for percocet for pain and referral to hand surgeon at [facility] for follow-up. <Dr. Kennedi Nunez MD - Last Filed: 12/18/21 00:32> [facility] Treatment and Re-Evaluation Comments:: Patient seen and evaluated with [employer]VIRONMENT[employer] student. Documentation reviewed and endorsed. Patient present secondary left hand pain and swelling. She was kicked in the hand by a cow while milking this afternoon. She did take 1 Percocet prior to arrival. She is right-hand dominant. Patient sitting upright in bed no acute distress. Head neck examination shows no external sign of trauma. Heart regular rate and rhythm. Sounds are clear. Left upper extremity examination reveals edema with ecchymosis over the thenar eminence of the left hand. She is able to wiggle all fingers and has good sensation distally. No tenderness at the wrist. Left hand x-rays revealed a nondisplaced oblique fracture through the third metacarpal. X-rays reviewed with patient and at bedside. She is placed in an Ortho-Glass AP splint. Following splint application she has good cap refill and sensation distally. Patient given a prescription for Percocet and will follow up with [facility]. Procedures <BLAKE HAGER - Last Filed: 12/17/21 23:45> Upper Extremity Splints Upper Extremity Splint: Orthoglass (AP Splint) Splint Fabrication: Fabricated Location: Left (Hand) Discharge Plan Triage Chief Complaint: Upper Extremity Injury ED Provider: Kennedi Nunez Dx/Rx/DC Orders Clinical Impression: Closed hand fracture Instructions: ED Closed Hand Fracture (Adult) Prescriptions: New oxycodone-acetaminophen [Percocet] 5-325 mg tablet 1 tab PO Q6H PRN (Reason: pain) 4 Days Qty: 14 RF: 0 No Action oxycodone-acetaminophen 5 MG-32 tablet 5 - 325 mg PO Q6H PRN PRN (Reason: Pain) RF: 0 eletriptan [Relpax] 20 MG tablet 20 mg PO DAILY PRN PRN (Reason: Headache) RF: 0 topiramate 50 MG tablet 50 mg PO QHS Qty: 30 RF: 0 atorvastatin 40 MG tablet 40 mg PO QHS Qty: 30 RF: 1 Primary Care Provider: Hope Mcdaniel Referrals: Hope Mcdaniel MD [Primary Care Provider] - Ciro Cheung MD [NON-STAFF] - 5-7 Days Disposition Disposition: Home, Self Care Discharge Date/Time: 12/17/21 23:39
--- NOTE | 2021-12-17 22:35 | RAD_ITS ---
STUDY: X-RAY - LEFT HAND REASON FOR EXAM: Female, 51 years old. kicked by cow; pain/swelling TECHNIQUE: 3 view(s) of the hand. COMPARISON: None. FINDINGS: Nondisplaced mildly comminuted fracture through the mid shaft third metacarpal. Remainder is within normal limits RAD/Hand Min 3 Views IMPRESSION: As above Electronically Signed: Neri Melendez DO at 23:00 EST ,
[2021-12-17] MEDS: oxyCODONE 5 MG Tablet PO (22:37)
--- NOTE | 2021-12-17 23:38 | ED.RN ---
splint applied by Dr Nunez
== END 2021-12-17 23:39 | disposition home or self-care (01) ==
PROVIDERS: Emergency Provider Emergency Medicine; PCP Internal Medicine; Visit Provider Emergency Medicine
DX: S62.353A Nondisplaced fracture of shaft of third metacarpal bone, left hand, initial encounter for closed fracture (principal); W55.22XA Struck by cow, initial encounter; Y93.K9 Activity, other involving animal care; M54.9 Dorsalgia, unspecified; G89.29 Other chronic pain; Z79.899 Other long term (current) drug therapy
CPT/HCPCS: 29126; 29125; 73130; 99283

== ENCOUNTER 2024-10-13 20:08 | Emergency (ER) | payer BC, SELFPAY ==
[2024-10-13 20:10] VITALS: BP 169/117; PULSE 53; RESP 18; TEMP 37.1; O2SAT 98; BMI 30.9
--- NOTE | 2024-10-13 20:20 | EKG12_ITS ---
Test Reason : CP Blood Pressure : */* mmHG Vent. Rate : 61 BPM Atrial Rate : 61 BPM P-R Int : 196 ms QRS Dur : 72 ms QT Int : 386 ms P-R-T Axes : 42 5 40 degrees QTcB Int : 388 ms Normal sinus rhythm Normal ECG Confirmed by LEANDRO AMOS, NIKOLAS ([id number]), rewrite editor MANJULA ESCOBAR ([id number]) on 10/15/2024 10:49:05 AM Referred By: Confirmed By: NIKOLAS REEVES MD
[2024-10-13 20:23] VITALS: O2SAT 98
[2024-10-13 20:30] LABS: Absolute Lymphocyte Count 3.92 X10^3/uL (0.83-4.51); Absolute Neutrophil Count 2.2 X10^3/uL (2.0-7.7); Basophil# 0.08 X10^3/uL; Basophil% 1.2 % (0-1); Eosinophil# 0.13 X10^3/uL; Eosinophils% 1.9 % (0-5); Hemoglobin 14.8 g/dL (12.0-15.0); Lymphocyte # 3.92 X10^3/ul (0.83-4.51); Lymphocyte % 56.4 % (19-41); Mean Corp Hgb Conc 32.9 g/dL (32-36); Mean Corpuscular Volume 94.3 fL (81-99); Mean Platelet Vol. 9.4 fl (6.2-12.0); Monocyte# 0.61 X10^3/uL; Monocyte% 8.8 % (0-10); NRBC Flagged by Analyzer 0 % (0-5); Neutrophil % 31.6 % (47-70); Platelet Count 297 K/mm3 (150-450); RBC Distribution Width CV 13.5 % (11.6-14.6); Red Blood Count 4.77 M/mm3 (4.2-5.4)
--- NOTE | 2024-10-13 20:30 | RAD_ITS ---
EXAM: XR CHEST, 1 VIEW CLINICAL INDICATION: chest pain TECHNIQUE: Frontal view of the chest. COMPARISON: 01/12/2020 FINDINGS: LUNGS AND PLEURAL SPACES: Unremarkable. No consolidation or edema. No pneumothorax. No effusion. HEART: Unremarkable. Cardiac silhouette not enlarged. MEDIASTINUM: Central airways and mediastinal contour are unremarkable. BONES/JOINTS: Unremarkable. No acute fracture. SOFT TISSUES: Unremarkable. RAD/Chest 1 View (Portable) IMPRESSION: No radiographic evidence of acute cardiopulmonary disease. Electronically Signed: Fuad Wang MD at 21:21 EST ,
[2024-10-13 21:02] LABS: Anion Gap 4 (5-15); BUN 22 mg/dL (7-18); Calcium,Total 9.5 mg/dL (8.5-10.1); Chloride 106 mmol/L (98-107); Creatinine, Serum 0.88 mg/dL (0.55-1.02); EST Glomerular Filtration Rate 71 mL/min (>60); Est Glom Filt Rate - Afr Amer 85 mL/min (>60); Estimated Creatinine Clearance 79.25 ml/min; Glucose 80 mg/dL (74-106); Potassium 3.7 mmol/L (3.5-5.1); Sodium Level 138 mmol/L (136-145); Troponin-I HS (w/2H Reflex) 5 pg/mL (3.0-54.0)
[2024-10-13 21:10] VITALS: BP 136/76; PULSE 58; RESP 14; O2SAT 100
--- NOTE | 2024-10-13 21:39 | ED.VIS.CHEST ---
HPI History of Present Illness Chief Complaint: Chest Pain Detail of Chief Complaint: Right-sided chest pain going down right arm Informant: patient Onset/Context/Timing Onset: Weeks (Onset approximately 2 to 3 weeks ago) Activity at onset: sudden and - (Varies. It is not related specifically to exertion) Timing: Intermittent and Lasts (30 minutes up to 2 hours.) Quality: Positive for Aching Location: Right Chest (Near the right axilla) Current Severity: Mild Maximum Severity: Severe Worsened By: Not Worsened By Exertion, Movement of Arm, Movement of Torso, Eating, Palpation, Breathing or Coughing Relieved By: Nothing Associated Symptoms: Positive for Dyspnea; Negative for Nausea, Vomiting, Diaphoresis, Cough, Fever, Lightheadedness, Acid Reflux or Palpitations Narrative Narrative: Patient is a 54-year-old woman. She has a history of hypercholesterolemia and in pain management for chronic pain.She presents with intermittent sudden right-sided chest pain that is not related to exertion, change in position or use of right upper extremity. She denies diaphoresis nausea vomiting. She denies fever, chills night sweats. She denies history of VTE. She has no risk factors for VTE. She denies leg pain, swelling discoloration. She denies history of hiatal hernia, GERD or peptic ulcer these. She is status postcholecystectomy. She denies intolerance to any types of food. She denies black or maroon-colored stool. She denies history of trauma. She has not noted a rash. She denies any change in activity. Her family history is unknown since she is adopted. Prior Similar Symptoms: No Recent Illness/Hospitalization: No CVD Risk Factors: Positive for Hypercholesterolemia; Negative for Hypertension, Diabetes or Family History 1' </=55 (Unknown since she is adopted) PE Risk Factors: Negative for Recent Travel/Surgery, Recent Immobilization, Prior DVT or PE, Cancer or OCP + Smoking + >/=35 TAD Risk Factors: Negative for Marfan's Syndrome, Hypertension or Family History [facility] Medical History Chronic pain after traumatic injury Chronic back pain Home Medications ?Medication ?Instructions ?Recorded ?Last Taken ?Type eletriptan 20 mg tablet (Relpax) 20 mg PO DAILY PRN PRN Headache 05/18/18 01/10/20 History oxycodone-acetaminophen 5 mg-325 5 - 325 mg PO Q6H PRN PRN Pain 05/18/18 01/12/20 History mg tablet atorvastatin 40 mg tablet 40 mg PO QHS #30 tabs 01/15/20 Unknown Rx topiramate 50 mg tablet 50 mg PO QHS #30 tabs 01/15/20 Unknown Rx oxycodone-acetaminophen 5 mg-325 1 tab PO Q6H PRN pain 4 days #14 12/17/21 Unknown Rx mg tablet (Percocet) tabs naproxen 500 mg tablet 500 mg PO BID #14 tabs 10/13/24 Unknown Rx Allergy/AdvReac Type Severity Reaction Status Date / Time No Known Allergies Allergy Verified 10/13/24 20:10 Surgical History H/O laminectomy History of back surgery Social History Smoking Status: Never smoker alcohol intake: current alcohol intake frequency: a few times a week Alcohol type: wine substance use type: does not use ROS ROS ED Constitutional Constitutional ED: Denies chills, fever(s), subjective or sweats Eyes Eyes: Reports none ENT ENT ED: Denies rhinorrhea or sore throat Cardiovascular Cardiovascular: Reports as per HPI; Denies orthopnea or paroxysmal nocturnal dyspnea Respiratory/Chest Respiratory/Chest: Denies cough, dyspnea, dyspnea on exertion, orthopnea or paroxysmal nocturnal dyspnea Gastrointestinal Gastrointestinal: Denies abdominal pain, melena, nausea or vomiting Musculoskeletal Musculoskeletal: Denies arthralgias, back pain, myalgias or neck pain Integumentary Denies rash Neurologic Neurologic: Denies paresthesias or weakness Hematologic/Lymphatic Hematologic/Lymphatic: Denies easy bleeding or easy bruising EXAM Physical Exam Const Vital Signs: 10/13/24 20:10 10/13/24 20:23 10/13/24 21:10 Temperature 98.7 F Temperature Source Oral Pulse Rate 53 L 58 L Respiratory Rate 18 14 Blood Pressure 169/117 H 136/76 H Blood Pressure Mean 134 96 Pulse Ox 98 98 100 Oxygen Delivery Method Room Air Room Air Room Air Positive well nourished and well developed Constitutional Narrative: Patient appears no distress. Initial vital signs were remarkable for an elevated blood pressure. Repeat blood pressure 1 hour later has improved markedly at 136/76. No treatment was rendered. General Appearance ED: well developed and NAD; Negative for pallor HEENT Reports moist mucous membranes normocephalic and atraumatic Eyes PERRL and EOMs intact bilaterally General Eye ED: Negative for pale conjunctiva or scleral icterus Neck no lymphadenopathy, supple and no JVD Chest Wall inspection of chest normal and palpation of chest normal Resp normal respiratory effort and clear to auscultation bilaterally Cardio regular rate, regular rhythm, S1 normal heart sound, S2 normal heart sound and no murmurs Peripheral Pulses: pulses 2+ throughout GI normal to inspection, nondistended, normoactive bowel sounds, soft to palpation, non-tender, non-distended and no masses; Negative for hepatosplenomegaly GI Narrative: Scar noted status postcholecystectomy. Back/Spine no CVA tenderness Extremity normal to inspection Extremity Narrative: There is no asymmetry, swelling, discoloration, leg vein distention, palpable cords or tenderness along the distribution of the deep venous system. General Extremety ED: Negative for edema General Extremity: Negative for edema Neuro oriented x3 and CN's II-XII intact bilaterally Sensorium / Orientation: awake and alert Psych mental status grossly normal Skin no rashes or lesions noted and no wounds General Skin Exam: Negative for jaundice or pallor MDM MDM MDM Narrative Medical decision making narrative: Differential diagnosis would be pneumothorax, pneumonia, pulmonary embolus, musculoskeletal pain since there is a reproducible component. Atypical presentation for peptic ulcer disease. Lab Data Attestation: I reviewed the patient's lab results. Lab results narrative: CBC is unremarkable. Electrolyte panel is normal. Troponin with symptoms for 2 to 3 weeks is normal at 5. Labs: Laboratory Results - last 24 hr 10/13/24 20:22 WBC 7.0 RBC 4.77 Hgb 14.8 Hct 45.0 MCV 94.3 MCH 31.0 MCHC 32.9 RDW Std Deviation 47.0 H RDW Coeff of Aaron 13.5 Plt Count 297 MPV 9.4 Immature Gran % (Auto) 0.100 Neut % (Auto) 31.6 L Lymph % (Auto) 56.4 H [place] % (Auto) 8.8 Eos % (Auto) 1.9 Baso % (Auto) 1.2 H Absolute Neuts (auto) 2.2 Absolute Lymphs (auto) 3.92 Nucleated RBC % 0 Sodium 138 Potassium 3.7 Chloride 106 Carbon Dioxide 29.0 Anion Gap 4 L BUN 22 H Creatinine 0.88 Estim Creat Clear Calc 79.25 Est GFR (MDRD) Af Amer 85 Est GFR (MDRD) Non-Af 71 BUN/Creatinine Ratio 25.0 H Glucose 80 Calcium 9.5 Troponin I High Sens 5 Radiography Chest X-Ray - ED: 1 View, Read by ED Physician (Single view chest x-ray was independently interpreted by me as negative. A single view was obtained since the nurse protocol was entered to prevent delay in patient receiving workup/treatment.), Normal, Heart, Lungs, Mediastinum, Bony Structures and No Acute Disease Diagnostic Testing: Clinical Impression(s) from Imaging Studies Chest X-Ray 10/13/24 20:30 IMPRESSION: No radiographic evidence of acute cardiopulmonary disease. Electronically Signed: Fuad Wang MD at 21:21 EST , EKG Initial EKG: Attestation: I personally reviewed and interpreted this EKG as follows: Interpretation: Sinus Rhythm (Rate is 61. EKG is normal. [place] interval is 196 ms. QS duration 72 ms. QT duration 386 ms. [place] is normal.) Differential Diagnosis Chest pain/SOB: pulmonary embolism Reason(s) PE less likely: Positive for Well's <3, not tachycardic and not hypoxic, ACS ACS: Positive for no evidence of ACS based on cardiac biomarkers, EKG without ischemia and history not suggestive of ischemia pain, pneumothorax Reason(s) pneumothorax less likely: Positive for bilateral breath sounds and [employer] withhout PTX, pneumonia Reason(s) pneumonia less likely: Positive for no infiltrate on CXR, no elevation in WBC count, no noted fever and symptoms not consistent with acute infection and aortic dissection Reason(s) Aortic dissection less likely:: Positive for normal vascular exam, no history of HTN, normal neurological exam, no significant risk factors for dissection, no widened mediastinum on CXR, pain not sudden onset, no ripping/tearing pain, no pain to back and blood pressure appropriate in ED Treatment and Re-Evaluation :: With greater than 2 to 3 weeks of pain normal troponin normal EKG cardiac etiology has been ruled out. Suspect this is musculoskeletal. Will treat as musculoskeletal. She received prescription for NSAID since she has history of chronic pain in pain management and on opiates. Discharge Plan Triage Chief Complaint: Chest Pain ED Provider: Casa Rankin Dx/Rx/DC Orders Clinical Impression: Intermittent right-sided chest pain, Pain management, Musculoskeletal chest pain, Elevated blood-pressure reading without diagnosis of hypertension Instructions: ED Chest Pain, Noncardiac, ED Hypertension, To Be Confirmed Prescriptions: New naproxen 500 mg tablet 500 mg PO BID Qty: 14 0RF No Action oxycodone-acetaminophen 5 MG-32 tablet 5 - 325 mg PO Q6H PRN PRN (Reason: Pain) Patient Comments: eletriptan [Relpax] 20 MG tablet 20 mg PO DAILY PRN PRN (Reason: Headache) Patient Comments: Take 1 tablet by mouth as needed. TAKE ONE AT ONSET OF MIGRAINE; MAY REPEAT AFTER 2 HOURS NECESSARY topiramate 50 MG tablet 50 mg PO QHS Qty: 30 0RF atorvastatin 40 MG tablet 40 mg PO QHS Qty: 30 1RF oxycodone-acetaminophen [Percocet] 5-325 mg tablet 1 tab PO Q6H PRN (Reason: pain) 4 Days Qty: 14 0RF Primary Care Provider: Hope Mcdaniel Referrals: Hope Mcdaniel MD [Primary Care Provider] - 1 Week if not improving Print Language: Italian Disposition Disposition: Home, Self Care
[2024-10-13 21:54] VITALS: BP 137/82; PULSE 59; RESP 17; TEMP 37.1; O2SAT 99
[2024-10-13 22:27] LABS: Reflex Troponin-HS? (from REC) Y
== END 2024-10-13 21:59 | disposition home or self-care (01) ==
PROVIDERS: Emergency Provider Emergency Medicine; PCP Internal Medicine; Visit Provider Emergency Medicine
DX: R07.89 Other chest pain (principal); R03.0 Elevated blood-pressure reading, without diagnosis of hypertension; R06.00 Dyspnea, unspecified; E78.00 Pure hypercholesterolemia, unspecified; G89.29 Other chronic pain; Z90.49 Acquired absence of other specified parts of digestive tract
CPT/HCPCS: 71045; 80048; 84484; 85025; 93005; 99284; A4216